=== PATIENT | male | born 1995 | race Hispanic/Latino ===

== ENCOUNTER 2018-02-16 05:19 | Emergency (ER) | payer OTHER | END 2018-02-16 07:18 | disposition home or self-care (01) | LOC: EDH 05:19 | DX: R07.89 Other chest pain (principal); J45.909 Unspecified asthma, uncomplicated; Z79.899 Other long term (current) drug therapy | CPT/HCPCS: 71045; 93005 ==

== ENCOUNTER 2019-01-06 20:12 | Emergency (ER) | payer OTHER ==
[2019-01-06] MEDS ORDERED: NA BORATE/BORIC AC/H2O/NACL 120 ML OPHTH IRRIG SOLN ONE (20:49)
[2019-01-06] MEDS ORDERED: TETRACAINE HCL 0.5% 4 ML OPHTH SOLN ONE (20:49)
[2019-01-06] MEDS ORDERED: FLUORESCEIN SODIUM 1 STRIP STRIP ONE (20:50)
== END 2019-01-06 21:05 | disposition home or self-care (01) ==
LOC: EDH 20:12
DX: S05.11XA Contusion of eyeball and orbital tissues, right eye, initial encounter (principal); J45.909 Unspecified asthma, uncomplicated; W22.8XXA Striking against or struck by other objects, initial encounter; Y93.89 Activity, other specified; Y92.89 Other specified places as the place of occurrence of the external cause; Y99.8 Other external cause status